=== PATIENT | female | born 1980 | race Caucasian/White ===

== ENCOUNTER 2021-05-28 09:37 | Outpatient (CLI) | payer OTHER | END 2021-05-29 14:52 | disposition home or self-care (01) | LOC: RAD 09:37 | PROVIDERS: ATTEND Obstetrics & Gynecology Reproductive Endocrinology | DX: N93.0 Postcoital and contact bleeding (principal) ==

== ENCOUNTER 2024-12-02 07:45 | Day surgery (SDC) | payer OTHER ==
[~2024-12-02 07:45] MED LIST: TAMOXIFEN CITRA20 MG
[2024-12-02] MEDS ORDERED: CEFAZOLIN SODIUM 1,000 MG VIAL IV SCH (12:00)
[2024-12-02] MEDS ORDERED: POVIDONE-IODINE 118 ML BOTT TOP ONE (12:00)
== END 2024-12-02 16:40 | disposition home or self-care (01) ==
LOC: CIR.AMB 07:45
PROVIDERS: ATTEND Obstetrics & Gynecology
DX: N85.00 Endometrial hyperplasia, unspecified (principal); N85.8 Other specified noninflammatory disorders of uterus; Z88.6 Allergy status to analgesic agent